=== PATIENT | female | born 1990 | race Caucasian/White ===

== ENCOUNTER 2017-10-30 11:16 | Emergency (ER) | payer SELFPAY ==
--- NOTE | 2017-10-30 14:01 | ER Document Report ---
ED Oral Problem - General Chief Complaint: Mouth Problem Stated Complaint: POSSIBLE ABSCESS Time Seen by Provider: 10/30/17 12:14 Mode of Arrival: Ambulatory Information source: Patient TRAVEL OUTSIDE OF THE [place] IN LAST 30 DAYS: No - HPI Patient complains to provider of: Other - Tongue swelling Notes: Patient is here with complaints of pain underneath her tongue. She states that there is some swelling under there as well. She states that she drinks a very hot cough yesterday thought she had is burned her tongue, but now states that there is some swelling. No fevers. No nausea, vomiting, diarrhea. No difficulty breathing or swallowing. No chest pain or shortness of breath. No rash. No facial swelling. No other complaints at this time. - Related Data Allergies/Adverse Reactions: Penicillins Allergy (Verified 10/30/17 11:16) Past Medical History - Social History Smoking Status: Former Smoker Chew tobacco use (# tins/day): No Frequency of alcohol use: Occasional Drug Abuse: None Family History: Reviewed & Not Pertinent Patient has suicidal ideation: No Patient has homicidal ideation: No Pulmonary Medical History: Reports: Hx Asthma Renal/ Medical History: Denies: Hx Peritoneal Dialysis - Immunizations Hx Diphtheria, Pertussis, Tetanus Vaccination: Yes Review of Systems - Review of Systems -: Yes All other systems reviewed and negative Physical Exam - Vital signs Vitals: Temp Pulse Resp BP Pulse Ox 98.6 F 69 18 119/96 H 98 10/30/17 11:24 10/30/17 11:24 10/30/17 11:24 10/30/17 11:24 10/30/17 11:24 - Notes Notes: GENERAL: alert, cooperative, nontoxic, no distress. HEAD: normocephalic, atraumatic EYES: conjunctiva pink without discharge, no external redness or swelling. EARS: no external swelling, no external redness NOSE: atraumatic, no external swelling MOUTH/THROAT: mucous membranes moist and pink. Patient is noted to have slight prominence of her sublingual salivary ducts with mild tenderness. There is no redness or purulent drainage noted. No tongue swelling. No trismus or drooling. Posterior pharynx is normal. NECK: soft, supple, full range of motion, no meningismus. CHEST: no distress, lungs clear and equal throughout. No wheezing, rales, rhonchi. CARDIAC: regular rate and rhythm, no murmur, normal capillary refill, normal pulses. BACK: full range of motion, no CVA tenderness. EXTREMITIES: full range of motion of all extremities. No redness, no swelling. NEURO: alert and oriented 3, no focal deficits, full range of motion of all extremities. PYSCH: appropriate mood, affect. Patient is cooperative. SKIN: pink, warm, dry, no rash. Course - Re-evaluation Re-evalutation: 10/30/17 13:58 Patient is nontoxic appearing with stable vitals. He has some mild prominence to her sub-lingual salivary gland ducts with mild tenderness to palpation. There is no redness or purulent drainage. There is no signs of infection. There is no sign of Jarrell's angina. It is possible she could have a salivary gland stone causing an obstruction. At this point there is no signs of infection. The patient will be discharged home with a prescription for Naprosyn and instructions to try sour candies and to follow-up with either ENT or dentist at the next available appointment. She was instructed to follow-up sooner she develops worsening pain, fever, difficulty breathing or swallowing, or has any further concerns. The patient is noted to have elevated blood pressure during today's emergency department visit. The patient was informed of this finding. The patient was instructed that this may be related to pre-hypertension and requires further evaluation with a primary care provider. The patient has no hypertensive symptoms at this time. The patient's emergency department workup and current diagnosis were explained to the patient and or family. Follow-up instructions were provided. Medications if prescribed were discussed. Instructions for when to return to the emergency department including specific worrisome symptoms were discussed with the patient and/or family. - Vital Signs Vital signs: Temp Pulse Resp BP Pulse Ox 98.6 F 69 18 119/96 H 98 10/30/17 11:24 10/30/17 11:24 10/30/17 11:24 10/30/17 11:24 10/30/17 11:24 Discharge - Discharge Clinical Impression: Salivary gland stone Condition: Stable Disposition: HOME, SELF-CARE Instructions: Acute Parotid Gland Swelling ([facility]), Dentist Additional Instructions: Take medications as prescribed. Suck on sour candy such as lemon heads. Follow -up with either ENT or dentist at the next available appointment. Follow-up sooner for worsening pain, high fever, difficulty breathing or swallowing, persistent vomiting, or for any further concerns. Your blood pressure was elevated during today's visit. Have this rechecked with your doctor. Prescriptions: Naproxen [Naprosyn] 500 mg PO BID #20 tablet Forms: Elevated Blood Pressure, Smoking Cessation Education Referrals: [facility] [Provider Group] - Follow up as needed [facility] [Provider Group] - Follow up as needed CJ REID MD [ACTIVE STAFF] - Follow up as needed VIVIENNE CAMPBELL MD [MANAGER QUALITY] - Follow up as needed KYLE MCCRARY MD [MANAGER QUALITY] - Follow up as needed TAMMY BRENNAN DO [MANAGER QUALITY] - Follow up as needed MILTON NIELSEN MD [MANAGER QUALITY] - Follow up as needed LACY FERREIRA MD [MANAGER QUALITY] - Follow up as needed
[2017-10-30 15:03] VITALS: BP 153/89
== END 2017-10-30 15:03 | disposition home or self-care (01) ==
LOC: ER 11:16
DX: K11.5 Sialolithiasis (principal); K08.89 Other specified disorders of teeth and supporting structures; R22.0 Localized swelling, mass and lump, head; R05 Cough; Z87.891 Personal history of nicotine dependence
CPT/HCPCS: 99282